=== PATIENT | female | born 1965 | race Caucasian/White ===

== ENCOUNTER 2018-03-09 21:32 | Emergency (ER) | payer OTHER ==
--- OUTSIDE RECORDS SUMMARY | 2018-03-09 21:37 | XMS REPORT | Continuity of Care Document ---
:1965 External Reference #:[id number] Author Name Isatu Akers Care Team Providers Name Role Phone Stephy Tomlin MD Primary Care Physician Unavailable Payers Type Date Identification Numbers Payment Provider Subscriber Effective: 2011 Policy Number: [id number] [employer] Venkatesh Oquendo Group Number: [id number] [address] PayID: [id number] ALBINA Yanez [phone] Onset: 2008 Policy Number: [id number] Nicholsonher Odette Oquendo PayID: [id number] [address] [address] [place] [address] Expires: 2011 Policy Number: [id number] [facility] Venkatesh Oquendo Group Number: [id number] [address] PayID: [id number] [place] [address] Effective: 2011 Policy Number: [id number] [employer] Venkatesh Oquendo Expires: 2011 Group Number: [id number] [address] PayID: [id number] [place] [address] Advance Directives Description No Information Available Problems Date Description Provider Status Onset: 05/23/2014 Benign hypertension Stephy Tomlin M.D. Active Onset: 11/25/2010 Pure hypercholesterolemia Citlalli Huerta N.P. Active Onset: 01/14/2016 History of laparoscopic adjustable Citlalli Huerta, N.Helen. Active gastric banding Onset: 11/25/2010 Hypothyroidism Citlalli Huerta NLindsay Active Onset: 11/25/2010 Depressive disorder Citlalli Huerta N.PNelia Active Onset: 10/31/2014 Knee pain Alexey Everett M.D. Active Onset: 11/07/2014 Complex tear of medial meniscus, Alexey Everett M.D. Active current injury, left knee, subsequent encounter Onset: 11/07/2014 Complex tear of medial meniscus, Alexey Everett M.D. Active current injury, right knee, subsequent encounter Onset: 08/16/2015 Iliotibial band friction syndrome Alexey Everett M.D. Active Onset: 08/16/2015 Peroneal tendinitis, right leg Alexey Everett M.D. 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 - daily till 03/19 Fluoxetine 01/15 Active Tablets 20mg 30tab 1 by mouth F33.9 Citlalli HCL s every day Varn, N.P. Clonazepam 01/15 Active Tablets 0.5mg 30tab take 1 tablet F33.9 Citlalli s hs prn Varn, N.P. anxiety Rosuvastatin 01/15 Active Tablets 5mg 90tab take 1 tablet E78.00 Citlalli Calcium s by mouth at Varn, N.P. bedtime Ranitidine 03/23 Active Tablets 150mg 60tab take one K21.9 Citlalli HCL s tablet by Varn, N.P. mouth twice a day Proair HFA 02/13 Active Aerosol 108(90Bas 25.5g 1 to 2 e) m inhalations Varn, N.P. mcg/Act every 4 hours as needed Miralax 08/16 Active Powder 3350NF 510un 17 gm every K21.9 its day mixed w/ Varn, N.P. 8 oz water/juice daily Lisinopril 05/23 Active Tablets 2.5mg 30tab 1 by mouth s every day Varn, N.P. Ibuprofen Active Suspension 100mg/5ML 500ml take 20ml by mouth four Mecenas, times a day MICKEY REESE as needed Calcium Active Chewtabs 500mg 2 chewtabs by Unknown Antacid / mouth as needed, may keep in her room Vitamin D-3 Active Capsules 2000Unit 1 by mouth / every day Fish Oil Active Capsules 1000mg 2 by mouth once a day Coq10 Active Capsules 200mg 1 by mouth /0000 every day Azithromycin 08/26 Hx Tablets 250mg 6tabs two tabs day J01.90 one, one Varn, N.P. - daily till 09/05 Fluticasone 08/26 Hx Suspension 50mcg/Act 16uni 2 sprays each J01.90 ts nostril daily Varn, N.P. - as needed 09/05 Ibuprofen 02/21 Hx Suspension 100mg/5ML 360un take 20ml by its mouth four Mecenavaibhav, - times a day MICKEY REESE 08/20 as needed /2016 Valtrex 02/17 Hx Tablets 500mg 30tab 1 by mouth A60.04 s twice a day x Varn, N.P. 5 days Naproxen 10/29 Hx Tablets 500mg 90tab 1 po bid prn M25.562 Tan s pain Bipin Watts MD 02/17 Medrol 10/29 Hx Tablets 4mg 21tab take as M25.562 Tan s directed per Bipin Watts MD 02/17 Azithromycin 03/20 Hx Tablets 250mg 6tabs 2 tabs by H10.9 mouth on day , - 1; 1 tab by M.D. 03/30 mouth day on days 2-5 Erythromycin 03/20 Hx Ointment 5mg/GM 3.500 apply to H10.9 gm affected Cotton, - eyelid every M.D. 04/03 night at bedtime as needed Neurontin 12/28 Hx Capsules 100mg 60cap 2 by mouth s every night Marguerite, - at bedtime M.D. 01/06 Tramadol HCL 12/06 Hx Tablets 50mg 60tab 1-2 tabs by S83.231D s mouth q4-6 Marguerite, - hours as M.D. 08/11 needed Aleve 10/31 Hx Capsules 220mg 60cap 2 by mouth s twice a day Marguerite, - as needed M.D. 08/14 Benzonatate 08/15 Hx Capsules 100mg 30cap one by mouth 465.9 s three times Varn, N.P. - daily as 08/14 needed for cough Azithromycin 08/15 Hx Tablets 250mg 6tabs two tabs day 465.9 one, one Varn, N.P. - daily till 08/25 Azithromycin 07/14 Hx Tablets 250mg 6tabs 2 tabs by 465.9 Heather mouth every Claritza, - day x1 day, 1 N.P. 07/25 tab by mouth every day x 4 days Fluticasone 07/14 Hx Suspension 50mcg/Act 1bott 2 spray in 465.9 Heather Propionate le each nostril Claritza, - in in the N.P. 02/07 Proair HFA 07/14 Hx Aerosol 108(90Bas 1inha 2 puffs 465.9 Heather /2014 e) ler inhaled every Claritza, - mcg/Act 4 to 6 hours N.P. 02/07 as needed Erythromycin 01/12 Hx Ointment 5mg/GM 18Oz apply twice 373.00 Citlalli Varn, N.P. - 06/05 /2014 Mupirocin 12/20 Hx Ointment 2% 22gm apply once 883.0 daily to rash Bradley N.P. - 07/14 Fluconazole 11/02 Hx Tablets 150mg 2tabs one by mouth 616.10 may repeat in Bradley, N.P. - 3 days as 04/11 Clindamycin 11/02 Hx Cream 2% 40gm one 616.10 applicator Bradley N.P. - intravaginall 04/13 y hs for nights Metrogel-Vagi 08/10 Hx Gel 0.75% 70gm apply intravaginall Cotton, - y qhs x 5 M.D. Hair Piece 08/04 Hx 1unit For use daily 704.00 s Nabor, - M.DNelia 04/11 Simvastatin 03/29 Hx Tablets 20mg 90tab Take 1 Tablet s Daily Nabor, - M.DNelia 11/02 Estradiol 03/29 Hx Patches 0.05mg/24 12uni Apply 1/2 Weekly HR ts Patch Once Cotton, - Weekly M.D. 08/15 Climara 03/15 Hx Patches 0.075mg/2 2unit apply one Weekly 4HR s patch weekly Nabor, - M.DNelia 03/29 Aleve Hx Capsules 220mg 60cap 1 po prn Unknown /0000 s - 02/07 Ibuprofen Hx Tablets 400mg by mouth Unknown /0000 every 4 to 6 hours as needed Omeprazole Hx Capsules DR 40mg 1 by mouth Unknown /0000 every day - 01/15 Viactiv Hx Chewtabs daily Unknown Multi-Vitamin / - 01/15 Calcium Hx Tablets 1 by mouth Unknown /0000 once a day - 08/26 Medications Administered in Office Medication Date Status Form Strength Qnty SIG Indications Ordering Provider Depomedrol Administered Injection Alexey 40MG Jam Everett M.D. Depomedrol Administered Injection Alexey 20MG Jam Everett M.D. Depomedrol Administered Injection Darshana 40MG 011 Luz Marina marcus M.D. Immunizations CPT Code Status Date Vaccine Lot # [id number] Given 12/09/2017 Zoster (Shingles) Vaccine (HZV), Recombinant, Subunit, Adjuvanted 04117 Given 11/20/2017 Influenza Virus Vaccine, Quadrivalent, Split, Preservative Free 89341 Given 02/07/2014 Flu Vaccine Split Virus Preservative Free For Indiv [id number] [id number] Older 24560 Given 12/20/2012 Tetanus And Diptheria (Td) For Adult Use [id number] Preservative Free 01238 Given 08/17/2006 Tdap - Tetanus/Diptheria/Acellular Pertussis 31435 Given 08/17/2006 Tdap - Tetanus/Diptheria/Acellular Pertussis Vital Signs Date Vital Result Comment 03/09/2018 11:38am Height 63.5 inches 5'3.50" Weight 198.50 lb Heart Rate 79 /min BP Systolic 143 mmHg BP Diastolic 87 mmHg Body Temperature 97.6 F O2 % BldC Oximetry 99 % BMI (Body Mass Index) 34.6 kg/m2 01/15/2018 8:41am Height 63.5 inches 5'3.50" Weight 199.00 lb Heart Rate 65 /min BP Systolic 100 mmHg BP Diastolic 60 mmHg Body Temperature 97.2 F O2 % BldC Oximetry 99 % BMI (Body Mass Index) 34.7 kg/m2 08/26/2017 2:21pm Height 63.5 inches 5'3.50" Heart Rate 81 /min BP Systolic 120 mmHg BP Diastolic 80 mmHg Body Temperature 97.4 F O2 % BldC Oximetry 97 % 04/27/2017 9:23am Height 63.5 inches 5'3.50" Weight 193.00 lb Heart Rate 80 /min Respiratory Rate 16 /min Body Temperature 97.2 F BMI (Body Mass Index) 33.6 kg/m2 04/06/2017 11:34am Height 63.5 inches 5'3.50" Weight 193.00 lb Heart Rate 66 /min BP Systolic Sitting 122 mmHg BP Diastolic Sitting 84 mmHg Respiratory Rate 16 /min Body Temperature 96.8 F BMI (Body Mass Index) 33.6 kg/m2 03/23/2017 11:26am Weight 193.25 lb Heart Rate 68 /min BP Systolic 122 mmHg BP Diastolic 74 mmHg Body Temperature 98.0 F O2 % BldC Oximetry 97 % 08/20/2016 10:28am Height 63.5 inches 5'3.50" Weight 189.25 lb Heart Rate 67 /min BP Systolic 128 mmHg BP Diastolic 78 mmHg Body Temperature 98.6 F O2 % BldC Oximetry 98 % BMI (Body Mass Index) 33.0 kg/m2 Waist Circumference 36 06/02/2016 8:43am Height 64 inches 5'4" Weight 193.00 lb Heart Rate 68 /min BP Systolic 126 mmHg BP Diastolic 80 mmHg Respiratory Rate 16 /min Body Temperature 97.8 F BMI (Body Mass Index) 33.1 kg/m2 02/22/2016 8:51am Height 64 inches 5'4" Weight 187.00 lb Heart Rate 78 /min BP Systolic 130 mmHg BP Diastolic 90 mmHg Respiratory Rate 16 /min Body Temperature 98.1 F BMI (Body Mass Index) 32.1 kg/m2 02/18/2016 8:45am Height 64 inches 5'4" Weight 185.00 lb Heart Rate 59 /min BP Systolic 130 mmHg BP Diastolic 80 mmHg O2 % BldC Oximetry 97 % BMI (Body Mass Index) 31.8 kg/m2 11/30/2015 11:24am Height 64 inches 5'4" Weight 184.00 lb Heart Rate 66 /min BP Systolic 102 mmHg BP Diastolic 78 mmHg Respiratory Rate 16 /min Body Temperature 98.1 F BMI (Body Mass Index) 31.6 kg/m2 10/30/2015 9:38am Height 63 inches 5'3" Weight 187.00 lb Heart Rate 80 /min BP Systolic 135 mmHg BP Diastolic 80 mmHg Pain Level 3 BMI (Body Mass Index) 33.1 kg/m2 08/17/2015 11:29am Height 62.75 inches 5'2.75" Weight 189.25 lb Heart Rate 63 /min BP Systolic Sitting 109 mmHg BP Diastolic Sitting 72 mmHg BMI (Body Mass Index) 33.8 kg/m2 Neck Circumference in inches 33 08/16/2015 9:09am Height 64 inches 5'4" Weight 190.00 lb Pain Level 3 BMI (Body Mass Index) 32.6 kg/m2 03/20/2015 2:01pm Height 64 inches 5'4" Heart Rate 68 /min BP Systolic Sitting 126 mmHg BP Diastolic Sitting 78 mmHg Respiratory Rate 16 /min Body Temperature 98.0 F O2 % BldC Oximetry 98 % 12/28/2014 11:30am Height 64 inches 5'4" Weight 190.00 lb BMI (Body Mass Index) 32.6 kg/m2 12/06/2014 11:03am Height 64 inches 5'4" Weight 190.00 lb Body Temperature 99.3 F Pain Level 5 BMI (Body Mass Index) 32.6 kg/m2 11/07/2014 1:53pm Height 64 inches 5'4" Weight 190.00 lb Pain Level 5 only with certain movement, but achy BMI (Body Mass Index) 32.6 kg/m2 10/31/2014 4:00pm Height 64 inches 5'4" Weight 190.00 lb Heart Rate 66 /min BP Systolic Sitting 166 mmHg BP Diastolic Sitting 108 mmHg Respiratory Rate 18 /min Pain Level 5 BMI (Body Mass Index) 32.6 kg/m2 10/30/2014 10:47am Heart Rate 60 /min BP Systolic Standing 132 mmHg BP Diastolic Standing 87 mmHg Body Temperature 97.5 F Pain Level 5 08/15/2014 11:37am Weight 194.00 lb Heart Rate 78 /min BP Systolic Sitting 138 mmHg BP Diastolic Sitting 89 mmHg Body Temperature 100.4 F 07/04/2014 9:04am Weight 199.25 lb Heart Rate 70 /min BP Systolic Sitting 129 mmHg BP Diastolic Sitting 85 mmHg 05/23/2014 4:27pm Weight 203.25 lb Heart Rate 73 /min BP Systolic Sitting 138 mmHg repeat 145/104 BP Diastolic Sitting 85 mmHg repeat 145/104 O2 % BldC Oximetry 99 % 04/10/2014 3:21pm Weight 204.00 lb Heart Rate 79 /min BP Systolic Sitting 144 mmHg BP Diastolic Sitting 86 mmHg Body Temperature 97.3 F 03/23/2014 9:11am Height 64 inches 5'4" Weight 201.00 lb Heart Rate 74 /min BP Systolic 150 mmHg BP Diastolic 80 mmHg Body Temperature 97.7 F BMI (Body Mass Index) 34.5 kg/m2 03/13/2014 11:09am Weight 204.00 lb Heart Rate 60 /min BP Systolic Sitting 154 mmHg 160/105 her machine BP Diastolic Sitting 84 mmHg 160/105 her machine Body Temperature 97.8 F O2 % BldC Oximetry 99 % 02/07/2014 10:21am Height 64 inches 5'4" Weight 198.00 lb Heart Rate 68 /min BP Systolic Sitting 130 mmHg BP Diastolic Sitting 88 mmHg Body Temperature 98.4 F BMI (Body Mass Index) 34.0 kg/m2 07/14/2013 10:42am Weight 188.50 lb Heart Rate 70 /min BP Systolic Sitting 132 mmHg BP Diastolic Sitting 90 mmHg Body Temperature 98.4 F O2 % BldC Oximetry 98 % 01/12/2013 4:33pm Heart Rate 66 /min BP Systolic Sitting 122 mmHg BP Diastolic Sitting 80 mmHg 12/20/2012 11:30am Heart Rate 64 /min BP Systolic 118 mmHg BP Diastolic 62 mmHg 07/14/2012 2:33pm Weight 191.00 lb Heart Rate 68 /min BP Systolic Sitting 110 mmHg BP Diastolic Sitting 64 mmHg 04/13/2012 8:45am Height 63.5 inches 5'3.50" Weight 192.00 lb Heart Rate 82 /min BP Systolic Sitting 132 mmHg BP Diastolic Sitting 90 mmHg BMI (Body Mass Index) 33.5 kg/m2 11/18/2011 11:38am Height 63.5 inches 5'3.50" Weight 188.50 lb Heart Rate 68 /min BP Systolic Sitting 140 mmHg BP Diastolic Sitting 82 mmHg BMI (Body Mass Index) 32.9 kg/m2 11/03/2011 3:53pm Height 63.5 inches 5'3.50" Weight 186.25 lb Heart Rate 64 /min BP Systolic Sitting 144 mmHg BP Diastolic Sitting 90 mmHg Body Temperature 97.5 F BMI (Body Mass Index) 32.5 kg/m2 08/05/2011 1:11pm Height 63.5 inches 5'3.50" Weight 182.00 lb Heart Rate 68 /min BP Systolic Sitting 124 mmHg BP Diastolic Sitting 74 mmHg BMI (Body Mass Index) 31.7 kg/m2 01/24/2011 1:57pm Height 63.5 inches 5'3.50" BP Systolic Sitting 132 mmHg l BP Diastolic Sitting 78 mmHg l 11/25/2010 2:38pm Height 63.5 inches 5'3.50" Heart Rate 68 /min BP Systolic Sitting 128 mmHg BP Diastolic Sitting 70 mmHg 03/29/2010 9:09am Height 63.5 inches 5'3.50" Weight 177.00 lb Heart Rate 64 /min BP Systolic 126 mmHg BP Diastolic 86 mmHg BMI (Body Mass Index) 30.9 kg/m2 Results Test Date Facility Test Result H/L Range Note Lipid Profile 01/08/2018 [facility] Triglycerides 114 mg/dL 1 (Trig/Chol/HDL) [address] [place] [address] [phone] Cholesterol 264 mg/dL 2 HDL Cholesterol 44.7 mg/dL 3 LDL Cholesterol 197 mg/dL 4 Laboratory test finding 01/08/2018 [facility] Glucose 90 mg/dL N 70-[address] [place] [address] [phone] TSH (Thyroid Stim Horm) 4.71 mcIU/mL N 0.34-5.60 Lipid Profile 08/13/2016 [facility] Triglycerides 122 mg/dL N 5 (Trig/Chol/HDL) [address] [place] [address] [phone] Cholesterol 252 mg/dL N 6 HDL Cholesterol 38.5 mg/dL N 7 LDL Cholesterol 189 mg/dL N 8 Laboratory test 08/13/2016 [facility] Glucose 90 mg/dL N 70- 100 9 finding [address] [place] [address] [phone] Laboratory test 02/12/2016 [facility] Vitamin B12 199 pg/mL N 180-914 10 finding [address] [place] [address] [phone] Vitamin D Total 25(Oh) 24.2 ng/mL Low 30-50 Ferritin 61.4 ng/mL N 11-307 Vitamin E Level 13.0 mg/L N 5.5 - 17.0 11 CBC Auto Diff 02/12/2016 [facility] White Blood 7.5 10^3/uL N 3.5-10.8 [address] [place] [address] [phone] Red Blood Count 4.36 10^6/uL N 4.0-5.4 Hemoglobin 12.6 g/dL N 12.0-16.0 Hematocrit 38 % N 35-47 Mean Corpuscular Volume 87 fL N 80-97 Mean Corpuscular Hemoglobin 29 pg N 27-31 Mean Corpuscular HGB Conc 33 g/dL N 31-36 Red Cell Distribution Width 13 % N 10.5-15 Platelet Count 228 10^3/uL N 150-450 Mean Platelet Volume 8 um3 N 7.4-10.4 Abs Neutrophils 4.6 10^3/uL N 1.5-7.7 Abs Lymphocytes 2.1 10^3/uL N 1.0-4.8 Abs Monocytes 0.6 10^3/uL N 0-0.8 Abs Eosinophils 0.1 10^3/uL N 0-0.6 Abs Basophils 0 10^3/uL N 0-0.2 Abs Nucleated RBC 0 10^3/uL N Granulocyte % 62.0 % N 38-83 Lymphocyte % 27.4 % N 25-47 Monocyte % 8.4 % N 1-9 Eosinophil % 1.8 % N 0-6 Basophil % 0.4 % N 0-2 Nucleated Red Blood Cells % 0 N Comp Metabolic Panel 02/12/2016 [facility] Sodium 138 mmol/L N 133-145 [address] [place] [address] [phone] Potassium 4.5 mmol/L N 3.5-5.0 Chloride 104 mmol/L N 101-111 Co2 Carbon Dioxide 30 mmol/L N 22-32 Anion Gap 4 mmol/L N 2-11 Glucose 82 mg/dL N 70-100 Blood Urea Nitrogen 21 mg/dL N 6-24 Creatinine 1.00 mg/dL High 0.51-0.95 BUN/Creatinine Ratio 21.0 High 8-20 Calcium 9.1 mg/dL N 8.6-10.3 Total Protein 6.5 g/dL N 6.4-8.9 Albumin 3.7 g/dL N 3.2-5.2 Globulin 2.8 g/dL N 2-4 Albumin/Globulin Ratio 1.3 N 1-3 Total Bilirubin 0.70 mg/dL N 0.2-1.0 Alkaline Phosphatase 70 U/L N 34-104 Alt 10 U/L N 7-52 Ast 13 U/L N 13-39 Egfr Non- 58.2 N >60 Egfr 74.9 N >60 12 Lipid Profile 06/29/2015 [facility] Triglycerides 100 mg/dL N 13 (Trig/Chol/HDL) [address] [place] [address] [phone] Cholesterol 218 mg/dL N 14 HDL Cholesterol 35.2 mg/dL N 15 LDL Cholesterol 163 mg/dL N 16 Comp Metabolic Panel 06/29/2015 [facility] Sodium 138 mmol/L N 133-145 [address] [place] [address] [phone] Potassium 4.2 mmol/L N 3.5-5.0 Chloride 104 mmol/L N 101-111 Co2 Carbon Dioxide 27 mmol/L N 22-32 Anion Gap 7 mmol/L N 2-11 Glucose 90 mg/dL N 70-100 Blood Urea Nitrogen 20 mg/dL N 6-24 Creatinine 0.87 mg/dL N 0.51-0.95 BUN/Creatinine Ratio 23.0 High 8-20 Calcium 9.4 mg/dL N 8.6-10.3 Total Protein 6.7 g/dL N 6.4-8.9 Albumin 3.9 g/dL N 3.2-5.2 Globulin 2.8 g/dL N 2-4 Albumin/Globulin Ratio 1.4 N 1-3 Total Bilirubin 0.80 mg/dL N 0.2-1.0 Alkaline Phosphatase 66 U/L N 34-104 Alt 11 U/L N 7-52 Ast 13 U/L N 13-39 Egfr Non- 68.6 N >60 Egfr 88.3 N >60 17 Clotest 06/02/2014 [facility] Clotest (SEE NOTE) [address] [place] [address] [phone] Surgical Pathology 06/02/2014 [facility] S RUN DATE: [address] 06/06/ <[place] [address] NOTE> [phone] Basic Metabolic 06/01/2014 [facility] Sodium 138 mmol/L N 133- [address] [place] [address] [phone] Potassium 4.1 mmol/L N 3.5-5.0 Chloride 104 mmol/L N 101-111 Co2 Carbon Dioxide 31 mmol/L N 22-32 Anion Gap 3 mmol/L N 2-11 Glucose 94 mg/dL N 70-100 Blood Urea Nitrogen 19 mg/dL N 6-24 Creatinine 0.94 mg/dL N 0.51-0.95 BUN/Creatinine Ratio 20.2 High 8-20 Calcium 9.1 mg/dL N 8.6-10.3 Egfr Non- 63.0 N >60 Egfr 81.1 N >60 20 Comp Metabolic Panel 04/10/2014 [facility] Sodium 136 mmol/L N 133-[address] [place] [address] [phone] Potassium 3.7 mmol/L N 3.5-5.0 Chloride 103 mmol/L N 101-111 Co2 Carbon Dioxide 29 mmol/L N 22-32 Anion Gap 4 mmol/L N 2-11 Glucose 99 mg/dL N 70-100 Blood Urea Nitrogen 18 mg/dL N 6-24 Creatinine 0.93 mg/dL N 0.51-0.95 BUN/Creatinine Ratio 19.4 N 8-20 Calcium 9.0 mg/dL N 8.6-10.3 Total Protein 6.7 g/dL N 6.4-8.9 Albumin 4.1 g/dL N 3.2-5.2 Globulin 2.6 g/dL N 2-4 Albumin/Globulin Ratio 1.6 N 1-3 Total Bilirubin 0.80 mg/dL N 0.2-1.0 Alkaline Phosphatase 55 U/L N 34-104 Alt 12 U/L N 7-52 Ast 14 U/L N 13-39 Egfr Non- 63.8 N >60 Egfr 82.1 N >60 21 Cortisol Free 04/10/2014 [facility] Urine Free 11 mcg/24h N 3.5-[address] [place] [address] [phone] Urine Collection Duration 24 h N Urine Total Volume 1100 mL N 22 Vitamin D, 25 04/10/2014 [facility] 25-Hydroxy Vitamin <4.0 ng/ mL N Hydroxy [address] [place] [address] [phone] 25-Hydroxy Vitamin D3 33 ng/mL N 25-Hydroxy Vitamin D Total 33 ng/mL N 23 Laboratory test 04/10/2014 [facility] TSH (Thyroid 4.52 IU/mL N 0.34-5.[address] [place] [address] Horm) [phone] Free T4 0.82 ng/mL N 0.61-1.12 Free T3 2.40 pg/mL Low 2.5-3.9 Lipid Profile 01/25/2014 [facility] Triglycerides 133 mg/dL N 24, 25 (Trig/Chol/HDL) [address] [place] [address] [phone] Cholesterol 228 mg/dL N 26 HDL Cholesterol 37.8 mg/dL N 27 LDL Cholesterol 164 mg/dL N 28 Comp Metabolic Panel 01/25/2014 [facility] Sodium 138 mmol/L N 133-145 [address] [place] [address] [phone] Potassium 3.9 mmol/L N 3.5-5.0 Chloride 105 mmol/L N 101-111 Co2 Carbon Dioxide 27 mmol/L N 22-32 Anion Gap 6 mmol/L N 2-11 Glucose 93 mg/dL N 70-100 Blood Urea Nitrogen 13 mg/dL N 6-24 Creatinine 0.80 mg/dL N 0.51-0.95 BUN/Creatinine Ratio 16.3 N 8-20 Calcium 8.5 mg/dL Low 8.6-10.3 Total Protein 6.4 g/dL N 6.4-8.9 Albumin 3.7 g/dL N 3.2-5.2 Globulin 2.7 g/dL N 2-4 Albumin/Globulin Ratio 1.4 N 1-3 Total Bilirubin 1.20 mg/dL High 0.2-1.0 Alkaline Phosphatase 56 U/L N 34-104 Alt 8 U/L N 7-52 Ast 11 U/L Low 13-39 Egfr Non- 75.9 N >60 Egfr 97.6 N >60 29 Laboratory 01/25/2014 [facility] TSH (Thyroid 4.72 IU/mL N 0.34-5.[address] [place] [address] Horm) [phone] Laboratory 07/14/2013 [facility] Throat Culture (SEE NOTE) [address] [place] [address] [phone] Laboratory 07/14/2013 [facility] [employer] In House Rapid Strep A negative test finding Lipid Profile 03/10/2012 [facility] Triglycerides 79 mg/dL 40 -200 (Trig/Chol/HDL [address] ) [place] [address] [phone] Cholesterol 246 mg/dL High Less than 200 HDL Cholesterol 44 mg/dL 40-60 32 Cholesterol/HDL Ratio 5.6 Average High 1-4.44 LDL Cholesterol 186.2 mg/dL High Less Than 100 33 Laboratory test 03/10/2012 [facility] CRP High 4.0 mg/L [address] [place] [address] [phone] Ua Routine 11/03/2011 [facility] [employer] In House Ua Specific 1.020 Leon Ua PH 6 Ua Color yellow Ua Appera slightly cloudy Ua WBC trace Ua Protein trace Ua Glucose negative Ua Ketones negative Ua Bilirubin negative Ua Urobilinogen negative Ua Nitrite negative Laboratory 08/05/2011 [facility] Yancy Smear For [address] Mycology <SEE NOTE> [place] [address] [phone] Vaginal Dna 08/05/2011 [facility] M [address] <SEE NOTE> [place] [address] [phone] Lipid Profile 07/29/2011 [facility] Triglyceride 75 mg/dL 40 - (Trig/Chol/HDL [address] ) [place] [address] [phone] Cholesterol 155 mg/dL Less Than 200 37 High Density Lipoprotein 36 mg/dL Low 40-60 38 Cholesterol/HDL Ratio 4.31 AVERAGE 1-4.44 Low Density Lipoprotein 104 mg/dL High Less Than 100 39 Comp Metabolic Panel 07/29/2011 [facility] Sodium 135 mmol/L [address] [place] [address] [phone] Potassium 3.9 mmol/L 3.5-5.0 Chloride 103 mmol/L 101-111 Co2 (Carbon Dioxide) 29.0 mmol/L 22-32 Anion Gap 3.0 mmol/L 2-11 40 Glucose 93 mg/dL 70-100 BUN 8 mg/dL 6-24 Creatinine 0.9 mg/dL 0.50-1.40 One Over Creatinine 1.11 BUN/Creatinine Ratio 8.9 8-20 Calcium 9.0 mg/dL 8.1-9.9 Total Protein 6.1 GM/DL Low 6.2-8.1 Albumin 3.7 GM/DL 3.6-5.4 Globulin 2.4 GM/DL 2-4 Albumin/Globulin Ratio 1.5 1-3 Bilirubin Total 1.7 mg/dL High 0.4-1.5 41 Alkaline Phosphatase 57 U/L 30-110 Alt (SGPT) 14 U/L 14-54 Ast (Sgot) 15 U/L 12-42 eGFR Non- 67.1 > 60 eGFR 86.3 > 60 42 Laboratory test 07/29/2011 [facility] TSH 3.87 MIU/ML 0.34- 5.60 finding [address] [place] [address] [phone] 1 Desirable: <150 Borderline High: 150-199 High: 200-499 Very High: >500 2 Desirable: <200 Borderline High: 200-239 High: >239 3 Low: <40 Desirable: 40-60 High: >60 4 Desirable: <100 Near Optimal: 100-129 Borderline High: 130-159 High: 160-189 Very High: >189 5 Desirable <150 Borderline high 150-199 High 200-499 Very High >500 6 Desirable <200 Borderline high 200-239 High >239 7 Low <40 Desirable: 40-60 High: >60 8 Desirable: <100 mg/dL Near Optimal: 100-129 mg/dL Borderline High: 130-159 mg/dL High: 160-189 mg/dL Very High: >189 mg/dL 9 FASTING 10 HOUR 10 Normal Range 180 to 914 Indeterminate Range 145 to 180 Deficient Range <145 11 ADDITIONAL INFORMATION This test was developed and its performance characteristics determined by [facility] in a manner consistent with CLIA requirements. This test has not been cleared or approved by the U.S. Food and Drug Administration. Test Performed by: [facility] [place] [address] Wood Boring Machine Operator: Fox Parker II, M.D., Ph.D. 12 Because ethnic data is not always readily available, this report includes an eGFR for both -Americans and non- Americans. The National Kidney Disease Education Program (NKDEP) does not endorse the use of the MDRD equation for patients that are not between the ages of 18 and 70, are , have extremes of body size, muscle mass, or nutritional status, or are non- or non-. According to the National Kidney Foundation, irrespective of diagnosis, the stage of the disease is based on the level of kidney function: Stage Description GFR(mL/min/1.73 m(2)) 1 Kidney damage with normal or decreased GFR 90 2 Kidney damage with mild decrease in GFR 60-89 3 Moderate decrease in GFR 30-59 4 Severe decrease in GFR 15-29 5 Kidney failure <15 (or dialysis) 13 Desirable <150 Borderline high 150-199 High 200-499 Very High >500 14 Desirable <200 Borderline high 200-239 High >239 15 Low <40 Desirable: 40-60 High: >60 16 Desirable: <100 mg/dL Near Optimal: 100-129 mg/dL Borderline High: 130-159 mg/dL High: 160-189 mg/dL Very High: >189 mg/dL 17 Because ethnic data is not always readily available, this report includes an eGFR for both -Americans and non- Americans. The National Kidney Disease Education Program (NKDEP) does not endorse the use of the MDRD equation for patients that are not between the ages of 18 and 70, are , have extremes of body size, muscle mass, or nutritional status, or are non- or non-. According to the National Kidney Foundation, irrespective of diagnosis, the stage of the disease is based on the level of kidney function: Stage Description GFR(mL/min/1.73 m(2)) 1 Kidney damage with normal or decreased GFR 90 2 Kidney damage with mild decrease in GFR 60-89 3 Moderate decrease in GFR 30-59 4 Severe decrease in GFR 15-29 5 Kidney failure <15 (or dialysis) 18 RUN DATE: 06/02/14 [facility] LAB LIVE PAGE 1 RUN TIME: [address] [place] [id number] Specimen Inquiry Name: VENKATESH OQUENDO : [address]: Dennis Lopez MD Acct: [id number] Unit: [id number] AGE: 48 Location: [facility] Re06/02/14 SEX: F Status: REG REF SPEC: [id number] ZONIA: 06/02/[address]: Dennis Lopez MD REQ: [id number] RECD: 06/02/14 STATUS: CAROLEE RODRIGUEZ DR: Stephy Tomlin MD _ SOURCE: GAS ANTRUM SPDESC: ORDERED: Clotest Procedure Result Verified Site Clotest Final 06/02/14- 1644 ML Clotest Positive * ML - MAIN LAB ([facility]) . END OF REPORT * ML=Testing performed at Main Lab DEPARTMENT OF PATHOLOGY, [facility] [address] [place], [place] [address] Charanjit Hager M.D. Director BRIANA # [id number] RUN DATE: 06/06/14 [facility] LAB LIVE PAGE 1 RUN TIME: 1320 [facility] [employer] [place], [place] [address] Specimen Inquiry Name: VENKATESH OQUENDO : [address]: Dennis Lopez MD Acct: [id number] Unit: [id number] AGE: 48 Location: [facility] Re06/02/14 SEX: F Status: REG REF SPEC: [id number] ZONIA: 06/02/14-[address] [facility] [address]: Dennis Lopez MD REQ: [id number] RECD: 06/02/14 STATUS: DONNA RODRIGUEZ DR: Stephy Espinoza MD _ ORDERED: LEVEL IV/2 FINAL DIAGNOSIS 1. Esophagus, random biopsies: -- Squamous mucosa with no significant pathologic abnormalities. -- No evidence of esophagitis identified. -- No glandular component identified. 2. Colon, 25 cm, biopsy: -- Tubular adenoma. -- No high grade dysplasia or malignancy. CLINICAL HISTORY No additional information provided POST-OPERATIVE DIAGNOSIS Esophagus - biopsied, no stricture, ring; stomach - normal, biopsied; duodenum - normal. Screening colonoscopy to cecum - polyp at 25 cm., biopsied. 10 years GROSS DESCRIPTION 1. The specimen is received in formalin labeled, Biopsy Random Esophagus, and consists of two coon-white irregular soft tissue fragments averaging 0.6 x 0.2 cm by less than 0.1 cm, which are submitted entirely in one cassette. 2. The specimen is received in formalin labeled, Biopsy Colon Polyp at 25 cm, and consists of two cartwright irregular soft tissue fragments measuring 0.4 x 0.2 x 0.2 cm and 0.6 x 0.2 x 0.1 cm, which are submitted entirely in one cassette. CONTINUED ON NEXT PAGE * ML=Testing performed at Main Lab DEPARTMENT OF PATHOLOGY, [facility] [address] [place], [place] [address] Charanjit Hager M.D. Director CLIA # [id number] RUN DATE: 06/06/14 [facility] LAB LIVE PAGE 2 RUN TIME: 1320 [facility] [employer] [place], [place] [address] Specimen Inquiry Patient: MOHIT OQUENDONA [id number] (Continued) GROSS DESCRIPTION (Continued) Signed (signature on file) Charanjit Hager MD 1320 END OF REPORT * ML=Testing performed at Main Lab DEPARTMENT OF PATHOLOGY, [address] [place] [address] Charanjit Hager M.D. Director [facility] # [id number] 20 Because ethnic data is not always readily available, this report includes an eGFR for both -Americans and non- Americans. The National Kidney Disease Education Program (NKDEP) does not endorse the use of the MDRD equation for patients that are not between the ages of 18 and 70, are , have extremes of body size, muscle mass, or nutritional status, or are non- or non-. According to the National Kidney Foundation, irrespective of diagnosis, the stage of the disease is based on the level of kidney function: Stage Description GFR(mL/min/1.73 m(2)) 1 Kidney damage with normal or decreased GFR 90 2 Kidney damage with mild decrease in GFR 60-89 3 Moderate decrease in GFR 30-59 4 Severe decrease in GFR 15-29 5 Kidney failure <15 (or dialysis) 21 Because ethnic data is not always readily available, this report includes an eGFR for both -Americans and non- Americans. The National Kidney Disease Education Program (NKDEP) does not endorse the use of the MDRD equation for patients that are not between the ages of 18 and 70, are , have extremes of body size, muscle mass, or nutritional status, or are non- or non-. According to the National Kidney Foundation, irrespective of diagnosis, the stage of the disease is based on the level of kidney function: Stage Description GFR(mL/min/1.73 m(2)) 1 Kidney damage with normal or decreased GFR 90 2 Kidney damage with mild decrease in GFR 60-89 3 Moderate decrease in GFR 30-59 4 Severe decrease in GFR 15-29 5 Kidney failure <15 (or dialysis) 22 Test Performed by: [facility] [address] [place] [address] Wood Boring Machine Operator: oFx Parker II, M.D., Ph.D. 23 REFERENCE VALUE 25-HYDROXY D TOTAL (D2+D3) Optimum levels in the healthy population are 20-50, patients with bone disease may benefit from higher levels within this range. Test Performed by: [facility] [address] [place] [address] Wood Boring Machine Operator: Fox Parker II, M.D., Ph.D. 24 PT IS FASTING 25 Desirable <150 Borderline high 150-199 High 200-499 Very High >500 26 Desirable <200 Borderline high 200-239 High >239 27 Low <40 Desirable: 40-60 High: >60 28 Desirable <100 Near Optimal 100-129 Borderline high 130-159 High 160-189 Very High >189 29 Because ethnic data is not always readily available, this report includes an eGFR for both -Americans and non- Americans. The National Kidney Disease Education Program (NKDEP) does not endorse the use of the MDRD equation for patients that are not between the ages of 18 and 70, are , have extremes of body size, muscle mass, or nutritional status, or are non- or non-. According to the National Kidney Foundation, irrespective of diagnosis, the stage of the disease is based on the level of kidney function: Stage Description GFR(mL/min/1.73 m(2)) 1 Kidney damage with normal or decreased GFR 90 2 Kidney damage with mild decrease in GFR 60-89 3 Moderate decrease in GFR 30-59 4 Severe decrease in GFR 15-29 5 Kidney failure <15 (or dialysis) 30 PT IS FASTING 31 RUN DATE: 07/16/13 [facility] LAB LIVE PAGE 1 RUN TIME: 7[address] [place], [place] [address] Specimen Inquiry Name: VENKATESH OQUENDO : [address]: Heather Jerry NP Acct: [id number] Unit: [id number] AGE: 47 Location: [facility] Re07/14/13 SEX: F Status: REG REF SPEC: [id number] ZONIA: 07/14/13-[address]: Heather Jrery NP REQ: [id number] RECD: 07/14/13 STATUS: COMP _ SOURCE: THROAT SPDESC: ORDERED: Throat Culture QUERIES: Medent Number [id number] Procedure Result Verified Site Throat Culture Final 07/16/13- 1039 ML Organism 1 NORMAL TRISH Quantity 3+ END OF REPORT * ML=Testing performed at Main Lab DEPARTMENT OF PATHOLOGY, [address] [place] [address] Charanjit Hager M.D. Director [facility] # [id number] HDL Interpretation: Undesirable: High Risk: Less than 40 MG/DL Desirable: Low Risk: Greater than 60 MG/DL 33 LDL Interpretation: Low Risk Optimal Level: LDL Less than 100 MG/DL Near or Above Optimal: LDL 100-129 MG/DL Borderline High Risk: LDL 130-159 MG/DL High Risk: LDL 160-189 MG/DL Very High Risk: LDL Greater than 189 MG/DL 34 Less Than 1.0......Low Risk of Cardiovascular Disease 1.0-3.0............Medium Risk (<2 Fold Increase) Greater Than 3.0...High Risk (Approximately 2-Fold Increase) 35 RUN DATE: 08/06/11 [facility] NMI LIVE PAGE 1 RUN TIME: 738 Specimen Inquiry RUN USER: INTERFACE Name: VENKATESH WHITING Status: REG REF Re08/05/11 Age/Sex: 45/F Unit#: [id number] Location: [facility]. : [birth year] SPEC #: [id number] ZONIA: 08/05/11 STATUS: COMP REQ #: [id number] RECD: 08/05/[address] [facility] [address]: Nabor REESE,Stephy Capone SOURCE: MYCOSES ENTR: 08/05/[address]: LENA: SeeComment ORDERED: YANCY SM/MYCOLOGY COMMENTS: YANCY NOT DONE ON THIS SOURCE, PLEASE SEE [id number] QUERIES: MEDENT REQUISITION # [id number] ACT WKST: [facility] 08/06/11 #1 Procedure Result Verified Site > YANCY SMEAR FOR MYCOLOGY Final 06/738 ML Test not performed [facility] Permit #[id number] [address] [place] [address] DEPARTMENT OF PATHOLOGY, [address] [place] [address] [facility] Permit #[id number] Guillermo Hobbs M.D. Balling Head Tender 36 RUN DATE: 08/06/11 [facility] NMI LIVE PAGE 1 RUN TIME: 1142 Specimen Inquiry RUN USER: INTERFACE Name: VENKATESH WHITING Status: REG REF Re08/05/11 Age/Sex: 45/F Unit#: [id number] Location: [facility] : 61 SPEC #: [id number] ZONIA: 08/05/11 STATUS: COMP REQ #: [id number] RECD: 08/05/[address] [facility] [address]: Stephy Tomlin MD SOURCE: VAGINAL ENTR: 08/06/[address]: CARLOS A: ORDERED: AFFIRM QUERIES: MEDENT REQUISITION # [id number] Procedure Result Verified Site > VAGINAL DNA PROBE Final 08/06/11- 1142 ML TRICHOMONAS NEGATIVE GARDNERELLA POSITIVE VIANNEY SPP POSITIVE The presence of G. vaginalis, although suggestive, is not diagnostic for bacterial vaginosis. Results should be interpreted in conjunction with other clinical and laboratory data available. Women with vaginal discharge should be evaluated for risk factors of cervicitis and pelvic inflammatory disease, toxic shock syndrome (S.aureus), and if present, evaluated for organisms not included in this assay such as N. gonorrhoeae, C. trachomatis, Mobiluncus, Mycoplasma and/or Prevotella. Mixed infections may occur. The performance of this test on patient specimens collected during or immediately after antimicrobial therapy is unknown. The presence or absence of Vianney species, G. vaginalis or T. vaginalis cannot be used as a test for therapeutic success or failure. - [facility] Permit #[id number] [address] [place] [address] DEPARTMENT OF PATHOLOGY, [address] [place] [address] [facility] Permit #[id number] Charanjit Hager M.D. Director Nubia Cintron M.D. Balling Head Tender 37 CHOLESTEROL INTERPRETATION: Desirable: Less than 200 MG/DL Borderline-High Risk: 200-239 MG/DL High-Risk: 240 MG/DL and over 38 HDL INTERPRETATION: Undesirable: High Risk: Less than 40 MG/DL Desirable: Low Risk: Greater than 60 MG/DL 39 LDL INTERPRETATION: Low Risk Optimal Level: LDL Less than 100 MG/DL Near or Above Optimal: LDL 100-129 MG/DL Borderline High Risk: LDL 130-159 MG/DL High Risk: LDL 160-189 MG/DL Very High Risk: LDL Greater than 189 MG/DL 40 Anion gap measurement may be of limited value in the presence of any alkalosis, especially in a combined acid base disorder. . 41 A metabolite of Naproxen, O-desmethylnaproxen, has been shown to interfere with the Jendrassik-Wailua method for measuring total bilirubin. Samples from patients who have taken Naproxen have shown spurious elevation in total bilirubin levels. 42 Because ethnic data is not always readily available, this report includes an eGFR for both -Americans and non- Americans. The National Kidney Disease Education Program (NKDEP) does not endorse the use of the MDRD equation for patients that are not between the ages of 18 and 70, are , have extremes of body size, muscle mass, or nutritional status, or are non- or non-. According to the National Kidney Foundation, irrespective of diagnosis, the stage of the disease is based on the level of kidney function: Stage Description GFR(mL/min/1.73 m(2)) 1 Kidney damage with normal or decreased GFR 90 2 Kidney damage with mild decrease in GFR 60-89 3 Moderate decrease in GFR 30-59 4 Severe decrease in GFR 15-29 5 Kidney failure <15 (or dialysis) Procedures Date Code Description Status 01/15/2018 09562 Admin & Interp Of Health Risk Assessment w/ Patient Completed 2017 [id number] Mammogram Completed 08/06/2016 [id number] Mammogram Completed 11/23/2014 66069 Arthroscopy,Knee,Meniscectomy Medial Or Lateral Completed 11/23/2014 64534 Arthroscopy,Knee,Meniscectomy Medial Or Lateral Completed 08/02/2014 [id number] Mammogram Completed 06/02/2014 [id number] Colonoscopy Completed 03/13/2014 24908 EKG Tracing & Interpretation Completed 07/20/2013 [id number] Mammogram Completed 11/25/2011 [id number] Mammogram Completed 02/19/2011 47837 Inject/Drain Joint/Bursa Major W/O US Completed 02/19/2011 26765 Rad Exam; Elbow, Limited Completed 04/17/2010 [id number] Mammogram Completed 03/13/2010 11083 Inject/Drain Joint/Bursa Intermediate W/O US Completed 11/28/2008 [id number] Mammogram Completed 04/01/2007 49449 Excision, Benign Lesion Scalp Neck Hands Feet Genitalia Completed 0.5 Or Le 04/01/2007 53352 Excision, Benign Lesion Scalp Neck Hands Feet Genitalia Completed 0.5 Or Le 10/09/2006 [id number] Mammogram Completed 09/23/2006 [id number] Mammogram Completed Encounters Type Date Location Provider Dx Diagnosis Office Visit 01/15/2018 Horacio Huerta, Z00.00 Encntr for 8:40a Medicine - N.P. general adult [facility] medical exam w/o abnormal findings I10 Essential (primary) hypertension E78.00 Pure hypercholesterolemia, unspecified K21.9 Gastro-esophageal reflux disease without esophagitis F43.21 Adjustment disorder with depressed mood Office Visit 08/26/2017 2:20p Horacio Huerta, J01.90 Acute sinusitis, Medicine - N.P. unspecified [place] Office Visit 04/27/2017 9:30a Surgical Sulaiman Espinoza, K21.9 [facility] reflux disease without esophagitis Z98.84 Bariatric surgery status Office Visit 04/06/2017 11:30a Surgical Sulaiman Espinoza Z46.51 Encounter for [facility] fitting and adjustment of gastric lap band Z98.84 Bariatric surgery status Office Visit 03/23/2017 11:20a Horacio Huerta, I10 Essential ( primary) Medicine - N.P. hypertension [place] K21.9 Gastro-esophageal reflux disease without esophagitis R53.83 Other fatigue Office Visit 08/20/2016 10:40a [facility] Internal Citlalli Huerta, Z00.01 Encounter for Medicine - N.P. general adult [place] medical exam w abnormal findings Z12.31 Encntr screen mammogram for malignant neoplasm of breast I10 Essential (primary) hypertension E78.00 Pure hypercholesterolemia, unspecified Z98.84 Bariatric surgery status F32.9 Major depressive disorder, single episode, unspecified Office Visit 06/02/2016 8:45a Surgical Sulaiman Espinoza Z98.84 Bariatric surgery [facility] RE[facility] status [facility] Office Visit 02/22/2016 8:45a Surgical Sulaiman Espinoza Z98.84 Bariatric surgery [facility] status [facility] Office Visit 02/18/2016 8:40a [facility] Internal Citlalli Huerta, I10 Essential Medicine - N.P. (primary) [place] hypertension E55.9 Vitamin D deficiency, unspecified A60.04 Herpesviral vulvovaginitis Office Visit 11/30/2015 11:15a Surgical Sulaiman Espinoza Z98.84 [facility]KEY REESE surgery status Z46.51 Encounter for fitting and adjustment of gastric lap band Office Visit 10/30/2015 8:00a Orthopedic Tan Valentino M25.562 Pain in left [facility] Alma Watts MD knee M76.32 Iliotibial band syndrome, left leg M54.16 Radiculopathy, lumbar region Office Visit 08/17/2015 11:20a [facility] Internal Citlalli Huerta, Z00.01 Encounter for Medicine - N.P. general adult [place] medical exam w abnormal findings I10 Essential (primary) hypertension K21.9 Gastro-esophageal reflux disease without esophagitis E78.0 Pure hypercholesterolemia N95.1 Menopausal and female climacteric states B35.1 Tinea unguium Office Visit 08/16/2015 8:30a Orthopedic Alexey Everett M76.31 Iliotibial band Services Of Guillermo syndrome, right C.MNeliaANelia leg M76.72 Peroneal tendinitis, left leg Office Visit 03/20/2015 [facility] Stephy H10.9 Unspecified 2:00p Irene Tomlin M.D. conjunctivitis [place] Office Visit 11/07/2014 Orthopedic Alexey S83.231A Complex tear of 1:45p [facility] Guillermo Everett medial mensc CNeliaMNeliaA. current injury, r knee, init Office Visit 10/31/2014 Orthopedic Alexey M25.561 Pain in right knee 3:30p Services Of Guillermo EverettMLawrence S83.206A Unsp tear of unsp meniscus, current injury, right knee, init Office Visit 10/30/2014 10:40a [facility] Citlalli Huerta, S83.91xA Sprain of Medicine - N.P. unspecified site [place] of right knee, initial encounter S89.81xA Other specified injuries of right lower leg, init encntr M25.561 Pain in right knee Office Visit 08/15/2014 11:40a [facility] Citlalli Huerta, 465.9 URI Upper Medicine - N.PNelia Respiratory [place] Infections Acute Unspec Sites Office Visit 07/04/2014 9:00a [facility] Stephy 401.1 Hypertension Irene Tomlin M.D. Benign [place] V12.72 History Personal Colonic Polyps V76.12 Screening Mammogram Bran Norton Office Visit 05/23/2014 4:20p [facility] Stephy 783.1 Weight Gain Irene Tomlin M.D. Abnormal [place] 796.2 Blood Pressure Reading Elevated W/O Hypertension Office Visit 04/10/2014 3:00p [facility] Stephy 783.1 Weight Gain Irene Tomlin M.D. Abnormal [place] 268.9 Vitamin D Deficiency Unspec 796.2 Blood Pressure Reading Elevated W/O Hypertension Office Visit 03/23/2014 9:00a [facility] Reza Ribeiro, TECHNICAL REP 723.1 Cervicalgia Medicine - [place] Office Visit 03/13/2014 11:00a [facility] Stephy 786.50 Pain Chest Unspec Irene Tomlin M.D. [place] 784.0 Headache 796.2 Blood Pressure Reading Elevated W/O Hypertension Office Visit 02/07/2014 10:20a [facility] Stephy V70.0 Examination Irene Tomlin M.D. General Medical [place] Routine AT Health Care Facility 627.9 Menopausal & Postmenopausal Disorder Unspec V76.12 Screening Mammogram Malig Schuyler Other V76.51 Special Screening For Malignant Neoplasms Colon V04.81 Need For Prophylactic Vaccination & Inoculation/Influenza Office Visit 07/14/2013 10:30a [facility] Heather Jerry, 465.9 URI Upper Medicine - N.P. Respiratory [place] Infections Acute Unspec Sites 462 Pharyngitis Acute Office Visit 01/12/2013 4:20p [facility] Citlalli Huerta, 373.00 Blepharitis Unspec Medicine - N.P. [place] Office Visit 12/20/2012 11:20a [facility] Citlalli Huerta, 883.0 Open Wound Medicine - N.P. Finger(S) W/O [place] Complication V06.5 Tetanus Diphtheria (DT) Office 07/14/2012 [facility] Torie Brand, 784.7 Epistaxis Visit 2:20p Irene Vivas Office 04/13/2012 [facility] Stephy 272.0 Hypercholesterolemia Pure Visit 8:40a Guillermo Hollingsworth 796.2 Blood Pressure Reading Elevated W/O Hypertension 787.1 Heartburn 611.72 Lump Or Mass Breast 784.0 Headache Office Visit 11/18/2011 11:20a [facility] Citlalli Huerta, 724.5 Backache Unspec Medicine - N.P. [place] Office Visit 11/03/2011 3:40p [facility] Citlalli Huerta, 720.2 Sacroiliitis Not Medicine - N.P. Elsewhere [place] Classified 616.10 Vaginitis & Vulvovaginitis Unspec Office Visit 08/05/2011 1:20p [facility] Stephy V70.0 Examination Irene Tomlin M.D. General Medical [place] Routine AT Health Care Facility V72.31 Routine Police Detention Attendant Examination 272.0 Hypercholesterolemia Pure V76.10 Screening For Malignant Neoplasm Breast 704.00 Alopecia Unspec 616.10 Vaginitis & Vulvovaginitis Unspec V70.0 Examination General Medical Routine AT Health Care Facility V72.31 Routine Police Detention Attendant Examination 272.0 Hypercholesterolemia Pure V76.10 Screening For Malignant Neoplasm Breast 704.00 Alopecia Unspec 616.10 Vaginitis & Vulvovaginitis Unspec Office Visit 02/19/2011 Orthopedic Alexey 726.32 Epicondylitis 10:15a Services Of Guillermo Everett Lateral C.M.A. Office Visit 01/24/2011 DO Not Use Citlalli Varn, 726.32 Epicondylitis 2:00p Certified Flex Endoscope Reprocessor-[place] N.P. Lateral Office Visit 11/25/2010 DO Not Use Citlalli Varn, 455.8 Hemorrhoids Unspec 2:20p Certified Flex Endoscope Reprocessor-[place] N.P. W/ Other Complications Office Visit 03/29/2010 DO Not Use Citlalli Varn, V70.0 Examination General 9:00a Certified Flex Endoscope Reprocessor-[place] N.P. Medical Routine AT Health Care Facility V72.31 Routine Police Detention Attendant Examination Office Visit 03/13/2010 Orthopedic Darshana 726.32 Epicondylitis 3:30p Services Of Guillermo Azevedo Lateral C.M.A. 354.0 Carpal Tunnel Syndrome Office Visit 07/28/2008 2:45p DO Not Use Citlalli Varn, 382.9 Otitis Media Certified Flex Endoscope Reprocessor-[place] N.P. Unspec Office Visit 07/05/2008 3:00p DO Not Use Citlalli Varn, 692.9 Dermatitis Certified Flex Endoscope Reprocessor-[place] N.P. Unspec Cause Due To Spec Agents Other 709.9 Skin & Subcutaneous Tissue Disorders Unspec Office 05/18/2008 DO Not Use Citlalli 535.50 Gastritis & Visit 11:00a Certified Flex Endoscope Reprocessor-[place] Varn, N.P. Gastroduodenitis Unspec W/O Hemorrhage Office 05/24/2007 DO Not Use Citlalli 611.71 Mastodynia Visit 11:00a Certified Flex Endoscope Reprocessor-[place] Varn, N.P. Office 03/18/2007 DO Not Use Citlalli V74.5 Screening Examination Visit 8:30a Certified Flex Endoscope Reprocessor-[place] Varn, N.P. Venereal Disease 112.1 Candidiasis The Vulva & Vagina 709.9 Skin & Subcutaneous Tissue Disorders Unspec Office 03/08/2007 DO Not Use Emma, 272.0 Hypercholesterolemia Visit 8:30a Horacio-Ortega Cash M.D. Pure 244.9 Hypothyroidism Other Unspec 311 Depressive Disorder Not Elsewhere Spec Office Visit 01/26/2007 10:15a DO Not Use Citlalli Varn, 466.0 Bronchitis Acute Certified Flex Endoscope Reprocessor-[place] N.P. 519.11 Acute Bronchospasm 796.2 Blood Pressure Reading Elevated W/O Hypertension Office 12/18/2006 DO Not Use Raddamon, 272.0 Hypercholesterolemia Visit 2:00p Johnathon Cash M.D. Pure Office 11/25/2006 DO Not Use [place], 599.0 UTI Urinary Tract Visit 3:45p Johnathon Cash M.D. Infection Site Not Spec Office 08/17/2006 DO Not Use Emma, V70.0 Examination General Visit 9:15a Johnathon Cash M.D. Medical Routine AT Health Care Facility V06.1 Kjwzuymmkm-Hulfnvh-Jkwnlpdi Combined (DTaP) Office Visit 06/30/2006 DO Not Use Cit[facility] 726.32 Epicondylitis 1:45p Johnathon Huerta, N.P. Lateral Office Visit 04/17/2006 DO Not Use [facility] 681.02 Onychia & 9:45a Johnathon Huerta, N.P. Paronychia Finger Office Visit 03/03/2006 DO Not Use [facility] 465.9 URI Upper 4:00p Horacio-Ortega Huerta, N.P. Respiratory Infections Acute Unspec Sites Office Visit 02/11/2006 DO Not Use [facility] 466.0 Bronchitis Acute 4:15p Horacio-Ortega Huerta, N.P. Plan of Treatment Future Appointment(s):07/19/2018 10:00 am - Citlalli Huerta, N.P. at [facility] - Mhtoqkyrb83/29/2019 - Citlalli Huerta N.P.J01.90 Acute sinusitis, unspecifiedNew Medication:Azithromycin 250 mg - two tabs day one, one daily till goneComments:For your sinus infection: I sent a prescription to the pharmacy for Azithromycin. Take 2 tablets thefirst day then 1 tablet daily until they are gone for a total of 5 days. You may find using a salinenasal spray helpful.If your symptoms do not improve call the office.
--- NOTE | 2018-03-09 21:44 | UC ---
Head Injury HPI - HPI Summary HPI Summary: 52 yo female presents with head injury. She tells me that about 1 hour [employer] she was at a bar and a curtain melissa fell onto the top of her head. She had no LOC. She remained at the libertarian for about a half hour before leaving. She began to developed a headache and mild nausea. She has an hour drive back home and is concerned that she may have a concussion. She is not on any anticoagulants. She denies dizziness, vision changes, weakness, vomiting. - History Of Current Complaint Stated Complaint: HEAD INJURY Time Seen by Provider: 03/09/18 21:44 Hx Obtained From: Patient Onset/Duration: Sudden Onset Severity Currently: Mild Severity Initially: Moderate Pain Intensity: 7 Pain Scale Used: 0-10 Numeric - Allergies/Home Medications Allergies/Adverse Reactions: Allergies Allergy/AdvReac Type Severity Reaction Status Date / Time Penicillins Allergy Unknown Verified 03/09/18 21:46 Reaction Details Home Medications: Home Medications Azithromycin TAB* [Zithromax TAB (Z-YAJAIRA) 250 mg #6 tabs] 2 tab PO .TODAY, THEN 1 DAILY 03/09/18 [History Confirmed 03/09/18] Cholecalciferol (Vitamin D3) [Vitamin D3] 1,000 unit PO DAILY 03/09/18 [History Confirmed 03/09/18] FLUoxetine* [PROzac*] 20 mg PO DAILY 03/09/18 [History Confirmed 03/09/18] Lena-3 Fatty Acids (Nf) [Fish Oil (NF)] 1,000 mg PO DAILY 03/09/18 [History Confirmed 03/09/18] Rosuvastatin Calcium 5 mg PO EVERY OTHER DAY 03/09/18 [History Confirmed ] Ubidecarenone [Coq-10] 30 mg PO DAILY 03/09/18 [History Confirmed 03/09/18] guaiFENesin [Mucinex] 1,200 mg PO Q12H PRN 03/09/18 [History Confirmed 03/09/18] raNITIdine HCl [Ra Acid Lead Bi Developer Maximum S] 150 mg PO BID 03/09/18 [History Confirmed 03/09/18] PMH/Surg Hx/FS Hx/Imm Hx Endocrine History: Dyslipidemia Cardiovascular History: Hypertension GI/ History: Gastroesophageal Reflux Psychological History: Anxiety, Depression - Surgical History Surgical History: Yes Surgery Procedure, Year, and Place: 2 C-SECTIONS 1988,1992 [facility] [place]. TOTAL HYSTERECTOMY 1999 [facility] [place]. LAP BAND SURGERY 2005 [facility] [place]. LASIK EYE SURGERY BILAT 10 YRS AGO - Family History Known Family History: Positive: None - Social History Occupation: Employed Full-time Lives: With Family Alcohol Use: Weekly Alcohol Amount: 1/WEEK Substance Use Type: None Smoking Status (MU): Never Smoked Tobacco Review of Systems All Other Systems Reviewed And Are Negative: Yes Constitutional: Positive: Negative Skin: Positive: Negative Respiratory: Positive: Negative Cardiovascular: Positive: Negative Neurovascular: Positive: Negative Musculoskeletal: Positive: Negative Neurological: Positive: Headache Psychological: Positive: Negative Physical Exam - Summary Physical Exam Summary: GENERAL: NAD. WDWN. No pain distress. SKIN: No rashes, sores, ulcers, masses, lesions. No hematoma. HEENT: Head: AT/NC. No raccoon eyes or battles sign. Eyes: PERRLA. EOM intact. NECK: Supple. Nontender. CHEST: CTAB. No r/r/w. No accessory muscle use. Breathing comfortably and in no distress. CV: RRR. Without m/r/g. Pulses intact. Brisk cap refill. MSK: FROM in B/L UEs and LEs with symmetric strength. NEURO: A&Ox3. 3 word recall, remote, recent memory, ability to follow 2-step directions, and attention intact. CN: II: Peripheral lopez intact. Vision normal. III, IV, : EOMI. No nystagmus. PERRLA. V: Sensations intact and symmetric. Opens mouth and clenches teeth. VII: No facial asymmetry. Forehead wrinkles. Grins, shuts eyes, frowns, puffs cheeks. VIII: Hearing intact to finger rub. IX, X: Swallows and coughs. Uvula midline. XI: Shrugs shoulders. Turns head against resistance. XII: No tongue deviation Jokdiv-rq-aojy are intact. Gait with normal base. Romberg: maintains balance, no pronator drift. Normal speech. No facial drooping. PSYCH: Age appropriate behavior. Triage Information Reviewed: Yes Vital Signs: Vital Signs: Temp Pulse Resp BP Pulse Ox 98.3 F 79 18 131/86 99 03/09/18 21:40 03/09/18 21:40 03/09/18 21:40 03/09/18 21:40 03/09/18 21:40 Vital Signs Reviewed: Yes Head Injury Course/Dx - Course Course Of Treatment: Low impact head injury. Her exam is normal and she has no risk factors for an intracranial pathology. Discussed this with patient and deferred CT scan at this time - will f/u or go to ED if symptoms worsen or persist. She may have sustained a mild concussion - therefore advised to rest and avoid activities that may exacerbate her symptoms such as texting, computer screens, and physical activities. - Differential Dx/Diagnosis Provider Diagnosis: Head injury Discharge - Sign-Out/Discharge Documenting (check all that apply): Patient Departure All imaging exams completed and their final reports reviewed: No Studies - Discharge Plan Condition: Stable Disposition: HOME Patient Education Materials: Concussion (ED), Head Injury (ED) Referrals: Stephy Tomlin MD [Primary Care Provider] - Additional Instructions: If you develop a fever, shortness of breath, chest pain, new or worsening symptoms - please call your PCP or go to the ED. Please refrain from any activities that worsen your symptoms - these are likely to include computer screens, texting, reading, and physical activities. May take tylenol/ibuprofen if needed for headache If your symptoms worsen - please go to the ER. - Billing Disposition and Condition Condition: STABLE Disposition: Home - Attestation Statements Provider Attestation: I was available for consult. This patient was seen by the SERGIO. The patient was not presented to, seen by, or examined by me. -Louise
[2018-03-09 21:45] VITALS: BP 131/86
== END 2018-03-09 22:05 | disposition home or self-care (01) ==
LOC: UCEAST 21:32
DX: S09.90XA Unspecified injury of head, initial encounter (principal); I10 Essential (primary) hypertension; K21.9 Gastro-esophageal reflux disease without esophagitis; R11.0 Nausea; Z88.0 Allergy status to penicillin; W20.8XXA Other cause of strike by thrown, projected or falling object, initial encounter; Y92.89 Other specified places as the place of occurrence of the external cause
CPT/HCPCS: 99211; G0463

== ENCOUNTER → 2018-12-10 12:13 | Day surgery (SDC) | payer OTHER ==
[~2018-12-10 12:13] MED LIST: Buffered Lidocaine 1% SYRIN* 1 ML/SYRINGE INTRADERM ONE; Clindamycin 900 MG/D5W BAG(*) 900 MG/50 ML BAG IVPB ONE; Dexamethasone IV* 4 MG/ML 1 ML (4 MG) ONE; EPHEDrine (Pressors)* 50 MG/ML VIAL ONE; EPINEPHRINE 1 MG/ML 1 ML VIAL ONE; Famotidine IV* 10 MG/ML 2 ML (20 mg) IV ONE; Famotidine IV* 10 MG/ML 2 ML (20 mg) ONE; KETAMINE HCL* 50 MG/ML 10 ML VIAL ONE; Ketorolac INJ* 30 MG/ML 1 ML VIAL ONE; Lactated Ringers 1000 ML Bag* 1,000 ML IV SCH; Lidocaine 1% w EPI 1:200,000* SDV 30 ML VIAL ONE; Lidocaine 2% PF * 5 ML VIAL ONE; Midazolam* 1 MG/ML 5 ML VIAL (5 MG) ONE; Naloxone* 0.4 MG/ML 1 ML VIAL IV PRN; Ondansetron INJ* 2 MG/ML VIAL IV PRN; Ondansetron INJ* 2 MG/ML VIAL ONE; Propofol* 10 MG/ML 20 ML BTL ONE; fentaNYL* 50 MCG/ML 2 ML VIAL (100 MCG VIAL) IV PRN; fentaNYL* 50 MCG/ML 2 ML VIAL (100 MCG VIAL) ONE; oxyCODONE/Acetamin 5/325 MG* TAB ONE
[2018-12-10] MEDS: oxyCODONE/Acetamin 5/325 MG* TAB PO PRN ×2 (16:00→16:03)
[2018-12-10 17:17] VITALS: BP 145/98
--- NOTE | 2018-12-12 00:34 | OP ---
OPERATIVE NOTE: DATE OF OPERATION: 12/10/18 DATE OF : 61 SURGEON: Tan Watts MD TANK TRUCK DRIVER: SUKUMAR Calderon A physician metal moulder's assistant was required for the length of the procedure for assistance with patient positi oning, instrumentation, and closure. ANESTHESIOLOGIST: Dr. Kenney Velasco. ANESTHESIA: General anesthesia, local anesthesia. PRE-OP DIAGNOSIS: Left knee medial meniscus tear. POST-OP DIAGNOSES: 1. Left knee medial meniscus tear. 2. Left knee lateral meniscus tear. 3. Left knee discoid lateral meniscus. OPERATIVE PROCEDURES: 1. Left knee arthroscopic partial medial and lateral meniscectomy. 2. Left knee saucerization of discoid lateral meniscus, arthroscopic. ANTIBIOTICS: Clindamycin 900 mg IV. IV FLUIDS: See Anesthesia note. YFLE-PF-QPVH TIME: 32 minutes. TOURNIQUET TIME: 33 minutes at 300 mmHg, left thigh tourniquet. SPECIMEN: None. IMPLANTS: None. COMPLICATIONS: None. ESTIMATED BLOOD LOSS: Minimal. INDICATIONS FOR PROCEDURE: The patient is a 53-year-old woman, who had an acute injury on 10/20/18, who continued to have severe pain in the left knee despite nonoperative treatments. The patient opted for surgical management. Discussed risks and potential complications of surgery. Discussed less predictable result of partial meniscectomy surgery in the context of some mild knee os teoarthritis. DESCRIPTION OF PROCEDURE: In preoperative holding, the patient signed a written consent. The operat alla extremity was marked in preoperative holding. The patient was taken back to the operating room a nd placed supine on the operating room table. Sedated and intubated. A tourniquet was placed about t he left proximal thigh. Left distal thigh was placed in a circumferential thigh srivastava. Left lower e xtremity was prepped and draped after the table was elevated and the foot of the table was dropped. Tourniquet was applied after the Esmarch was applied. Tourniquet elevated to 300 mmHg. I made an anterolateral knee arthroscopy portal using standard technique. Articular cartilage of the patellofemoral compartment was significant for some grade 1 and 2 changes on the undersurface of the patella. I next moved to the medial compartment. Some fraying about the posterior horn medial compartment was evident consistent with some tearing there. I established an anteromedial knee arthroscopy portal u sing standard technique under direct visualization. I debrided some anterior synovitic tissue. I sm oothed out some of that posterior horn medial meniscus tissue. There was noted some articular cartil age loss, medial femoral condyle, grade 1 and 2. I moved to the lateral compartment. I was surprised to see a clear tear in the anterior aspect of th e lateral meniscus. Careful probing then demonstrated a fully discoid lateral meniscus with tearing to it. Quick review of MRI demonstrated that the lateral discoid meniscus was present on preoperativ e imaging. Because there was a tear in the lateral meniscus, I both performed a partial lateral meniscectomy and performed a saucerization of the lateral meniscus to debride it back to a normal anatomic size. Thi s was performed with meniscus biters as well as arthroscopic shaver. Probed the remainder of the men iscus and no unstable tears. There was some grade 1 articular cartilage wear lateral femoral condyle . I next returned to medial compartment. What soon became clear, as I worked through opposing portals , that there was actually a large flap of tear of the posterior horn medial meniscus. A superior andres flet, all the way from near the root along the length of the posterior horn, was free and loose, like ly causing significant pain. This was not amenable to a repair. The majority of the thickness of the meniscus was fully intact at the root; however, there was a thin wafer of meniscus along the superio r aspect of the meniscus that was entirely torn off along the posterior horn. Using meniscus biters and shaver, this flap was removed. I debrided some tearing in the body of the meniscus as well. I probed the remainder of the medial meniscus and everything was stable. There wa s some stretching to the MCL with knee manipulation that improved visualization that may lead to a li ttle bit of temporary discomfort postoperatively. I performed partial meniscectomy both medial and lateral working through both medial, lateral, access ory medial and accessory lateral portals. Stable rims were left intact of meniscus on either side. I returned to patellofemoral compartment and no new pathology noted there. I removed instruments and fluid from knee. Closed the skin incisions with figure- of-eight in 12 sti tches using nylon 3.0 suture. Xeroform, 4x4s, ABDs, sterile Webril, Tanner bandage from foot to groin. Prior to dressing some local anesthesia was placed about the skin incisions. The patient was awakened, extubated, and transferred to the PACU. Wound care instructions provided. The patient will begin physical therapy immediately. The patient will take Percocet as needed for p ain control and aspirin for DVT prophylaxis. She will see me in 10 to 14 days postoperatively in [place]. [id number]/[facility] #: [id number]
== END | disposition home or self-care (01) ==
LOC: OR 12:13
PROVIDERS: ATTEND Orthopaedic Surgery
DX: S83.242A Other tear of medial meniscus, current injury, left knee, initial encounter (principal); S83.282A Other tear of lateral meniscus, current injury, left knee, initial encounter; V48.4XXA Person boarding or alighting a car injured in noncollision transport accident, initial encounter; Y92.9 Unspecified place or not applicable; I10 Essential (primary) hypertension; G47.33 Obstructive sleep apnea (adult) (pediatric); K21.9 Gastro-esophageal reflux disease without esophagitis; F41.8 Other specified anxiety disorders; J45.909 Unspecified asthma, uncomplicated
CPT/HCPCS: A9270-GY; J1100; J1885; J2001; J2250; J2405; J2704; J3010